=== PATIENT | female | born 1975 | race Caucasian/White ===

== ENCOUNTER 2019-09-19 21:27 | Emergency (ER) | payer MEDICAID ==
[~2019-09-19] VITALS: Ht 165.1 cm; Wt 90.7 kg
[~2019-09-19 21:27] MED LIST: AYG5 PO; OXYC-130 PO
[2019-09-19 21:50] VITALS: BP_SYST 193
[2019-09-20] MEDS ORDERED: DIPH-TET-PERTUS Vaccine 0.5 ML VIAL (ADACEL) I.M. ONE (01:00)
[2019-09-20] MEDS ORDERED: LIDOCAINE/EPI 1% 1:100000 20 ML VIAL INJ ONE (03:09)
[2019-09-20 04:25] VITALS: BP_SYST 161
== END 2019-09-20 04:25 | disposition home or self-care (01) ==
LOC: SED 21:27
DX: S01.81XA Laceration without foreign body of other part of head, initial encounter (principal); S81.812A Laceration without foreign body, left lower leg, initial encounter; Z88.1 Allergy status to other antibiotic agents; Z88.5 Allergy status to narcotic agent; W54.0XXA Bitten by dog, initial encounter; Y93.89 Activity, other specified; Y92.89 Other specified places as the place of occurrence of the external cause; Y99.8 Other external cause status
CPT/HCPCS: 90715; 99283

== ENCOUNTER 2019-09-22 13:45 | Emergency (ER) | payer MEDICAID ==
[~2019-09-22] VITALS: Ht 165.1 cm; Wt 83.9 kg
[2019-09-22 13:48] VITALS: BP_SYST 154
--- NOTE | 2019-09-22 13:52 | NUR ---
Patient triaged and placed in waiting room. VSS and patient appears in no acute distress at this time. Awaiting available bed, and MD notified of need for MSE.
--- NOTE | 2019-09-22 13:55 | NUR ---
Patient to [facility] for evaluation. Side rails up. Report given to [facility].
--- NOTE | 2019-09-22 13:56 | NUR ---
Patient came from home for re-evaluation to wound by her mouth. She got stitches 2 days ago and was told to come back in for re-valulation.
--- NOTE | 2019-09-22 14:13 | NUR ---
LAMBERTO Ball at bedside examining patient.
[2019-09-22 14:17] VITALS: BP_SYST 154
--- NOTE | 2019-09-22 14:17 | NUR ---
Patient given written and verbal discharge instructions and verbalizes understanding. ER MD discussed with patient the results and treatment provided. Patient in stable condition. ID arm band removed. Patient educated on pain management and to follow up with PMD. Pain Scale 0/10. Opportunity for questions provided and answered. Medication side effect fact sheet provided.
== END 2019-09-22 14:17 | disposition home or self-care (01) ==
LOC: SED 13:45
DX: S01.511D Laceration without foreign body of lip, subsequent encounter (principal); Z86.2 Personal history of diseases of the blood and blood-forming organs and certain disorders involving the immune mechanism; Z88.6 Allergy status to analgesic agent; Z88.5 Allergy status to narcotic agent; Z91.018 Allergy to other foods; W54.0XXD Bitten by dog, subsequent encounter
CPT/HCPCS: 99281

== ENCOUNTER 2021-01-04 18:22 | Emergency (ER) | payer MEDICAID ==
[~2021-01-04] VITALS: Ht 165.1 cm; Wt 88.5 kg
[2021-01-04 19:23] VITALS: BP_SYST 138
--- NOTE | 2021-01-04 19:51 | NUR ---
Patient did not want to be seen. Patient left without being seen. No further treatment done. ER MD aware
== END 2021-01-04 19:51 | disposition left against medical advice (07) ==
LOC: SED 18:22
DX: M54.2 Cervicalgia (principal); Z53.21 Procedure and treatment not carried out due to patient leaving prior to being seen by health care provider

== ENCOUNTER 2021-01-05 10:44 | Emergency (ER) | payer MEDICAID ==
[~2021-01-05] VITALS: Ht 165.1 cm; Wt 88.5 kg
[2021-01-05 10:50] VITALS: BP_SYST 144
--- NOTE | 2021-01-05 10:50 | NUR ---
pt. came in with concerns of pain to left side of neck, states on sunday turned her head to talk to someone and felt a pop, had swelling and instant pain, pain has improved and now is a 6/10 and no further swelling.
--- NOTE | 2021-01-05 10:50 | NUR ---
Patient to ER bed 7 to gown for evaluation. Side rails up. Assumed care.
--- NOTE | 2021-01-05 10:56 | NUR ---
ER at bedside examining patient.
--- NOTE | 2021-01-05 11:19 | NUR ---
Patient transported to radiology via wheelchair, accompanied by staff.
[2021-01-05 12:57] VITALS: BP_SYST 135
--- NOTE | 2021-01-05 12:58 | NUR ---
Patient given written and verbal discharge instructions and verbalizes understanding. ER Dr. Aguilera discussed with patient the results and treatment provided. Patient in stable condition. ID arm band removed. Rx of given. Patient educated on pain management and to follow up with PMD. Pain Scale 3.
== END 2021-01-05 12:58 | disposition home or self-care (01) ==
LOC: SED 10:44
DX: M62.838 Other muscle spasm (principal); M54.2 Cervicalgia; Z88.5 Allergy status to narcotic agent; Z88.8 Allergy status to other drugs, medicaments and biological substances; Z79.899 Other long term (current) drug therapy
CPT/HCPCS: 70490; 76376; 99284